=== PATIENT | male | born 1955 | race Caucasian/White ===

== ENCOUNTER 2017-08-21 18:25 | Emergency (ER) | payer BC ==
--- OUTSIDE RECORDS SUMMARY | 2017-08-21 18:27 | XMS REPORT | Clinical Summary ---
:1955 Author Organization [facility] Address [address] [place] [address] Care Team Providers Name Role Phone Donald Ortiz MD Primary Care Provider Allergies No Known Allergies Current Medications Prescription Sig. Disp. Refills Start Date End Date Status meloxicam (MOBIC) 15 mg Take 1 tablet (15 30 tablet 2 09/20/2016 Active tablet mg total) by mouth daily. Hospital, Clinic, or Other Ordered Dose Route Frequency Start Date End Date Status Facility Administered Medication methylPREDNISolone acetate 40 mg IM once 09/20/2016 Active (DEPO-MEDROL) injection 40 mgIndications: Effusion of right knee Active Problems Not on file Encounters Date Type Specialty Care Team Description 03/03/2017 Office Visit Orthopedic Surgery Leonel Leal Effusion of right knee JAKY Shelton (Primary Dx) 10/26/2016 Office Visit Orthopedic Surgery Elie Holloway MD Effusion of right knee (Primary Dx) 09/20/2016 Office Visit Orthopedic Surgery Elie Holloway MD Pain of right hip joint (Primary Dx); Hip strain, right, initial encounter; Effusion of right knee; Right knee pain, unspecified chronicity after 08/20/2016 Social History Tobacco Use Types Packs/Day Years Used Date Never Smoker Smokeless Tobacco: Current User Chew Sex Assigned at Date Recorded Not on file Last Filed Vital Signs Vital Sign Reading Time Taken Blood Pressure - - Pulse - - Temperature - - Respiratory Rate - - Oxygen Saturation - - Inhaled Oxygen Concentration - - Weight 109 kg (240 lb) 09/20/2016 9:35 AM CDT Height 185.4 cm (6' 1") 09/20/2016 9:35 AM CDT Body Mass Index 31.66 09/20/2016 9:35 AM CDT Plan of Treatment Health Maintenance Due Date Last Done Comments COLON CANCER SCREENING 2004 SHINGRIX VACCINE (#1) 2004 ZOSTER VACCINE 2014 INFLUENZA VACCINE 10/12/2017 Procedures Procedure Name Priority Date/Time Associated Comments Diagnosis PA ARTHROCENTESIS Routine 03/03/2017 2:56 Effusion of right Results for this ASPIR&/INJ MAJOR PM IN [employer] knee procedure are in JT/BURSA W/O US the results section. PA ARTHROCENTESIS Routine 09/20/2016 10:39 Effusion of right Results for this ASPIR&/INJ MAJOR AM CDT knee procedure are in JT/BURSA W/O US the results section. after 08/20/2016 Results Large Joint Arthrocentesis (03/03/2017 2:56 PM) JAKY Berry 03/03/20172:56 PM Large Joint Arthrocentesis Consent given by: patient Timeout: Immediately prior to procedure a time out was called to verify the correct patient, procedure, equipment, behavior support specialist and site/side marked as required Supporting Documentation Indications: pain and joint swelling Procedure Details Preparation: Patient was prepped and draped in the usual sterile fashion Ultrasound guided: no Location: knee - R knee Right side: Needle size: 25 G Approach: anterolateral Right knee medications administered: 5 mL lidocaine 10 mg/mL (1 %); 80 mg methylPREDNISolone acetate 40 mg/mL Large Joint Arthrocentesis (09/20/2016 10:39 AM) Narrative Elie Holloway MD 09/20/2016 10:39 AM Large Joint Arthrocentesis Consent given by: patient Timeout: Immediately prior to procedure a time out was called to verify the correct patient, procedure, equipment, behavior support specialist and site/side marked as required Supporting Documentation Indications: pain and joint swelling Procedure Details Preparation: Patient was prepped and draped in the usual sterile fashion Ultrasound guided: no Location: knee - R knee Right side: Needle size: 25 G Approach: anterolateral Right knee medications administered: 5 mL lidocaine 10 mg/mL (1 %); 80 mg methylPREDNISolone acetate 40 mg/mL XR Pelvis 1 Or 2 Vw (09/20/2016 9:58 AM) Specimen Performing Laboratory [facility] [address] [place] [address] Narrative 2 views of the right hip show no significant joint arthrosis or bony lesions. XR Knee 4+ Vw Right (09/20/2016 9:41 AM) Specimen Performing Laboratory [facility] [address] [place] [address] Narrative 4 views (standing AP/PA, lateral and Merchants) of the Right knee(s) reveal no evidence of fracture, dislocation or any other acute or chronic osseous abnormalities. after 08/20/2016 Insurance Payer Benefit Plan / Group Subscriber ID Type Phone Address BCBS BCBS CHOICE PPO/FEDERAL EMPL PPO xxxxxxxxxxxx PPO Home: [phone] [place], [place] [id number]
[2017-08-21] MEDS ORDERED: ACETAMINOPHEN 500 MG TAB ONE (18:59)
--- NOTE | 2017-08-21 19:02 | RAD REPORT ---
EXAM DESCRIPTION: CT - Ct Stroke Brain Wo Cont - 08/21/2017 6:47 pm CLINICAL HISTORY: Confusion and alteration of consciousness COMPARISON: None. TECHNIQUE: Computed axial tomography of the head was obtained. IV contrast was not requested. All CT scans are performed using dose optimization technique as appropriate and may include automated exposure control or mA/KV adjustment according to patient size. FINDINGS: An intracranial bleed is not seen . The ventricles are normal in caliber. No extra-axial fluid collection is noted. Fluid within the sinuses/ mastoids is not seen. IMPRESSION: No acute intracranial abnormality is seen. If patient's symptoms persist MRI of the bra in would be recommended. The exam was discussed with Doctor Berry emergency room 6:50 p.m. August 21, 2017
[2017-08-21 19:15] LABS: Protime INR 1.08
[2017-08-21 19:16] LABS: Absolute Lymphocytes (CBC) 2.2 K/uL (0.7-4.9); Absolute Monocytes 0.7 K/uL (0.1-1.3); Absolute Neutrophil 7.5 K/uL (1.8-8.0); Basophils % 0.4 % (0-1.3); Eosinophils % 1.5 % (0-4.4); Hematocrit 42.9 % (39.6-49.0); Lymphocytes % 21.2 % (15.3-44.8); MCH 32.4 pg (27.0-35.0); MPV 7.9 fL (7.6-11.3); Monocytes % 6.3 % (3.3-12.3); RBC Red Blood Cell Count 4.48 M/uL (4.33-5.43)
--- NOTE | 2017-08-21 19:21 | RAD REPORT ---
EXAM DESCRIPTION: Clarence Single View08/21/2017 7:05 pm CLINICAL HISTORY: fever COMPARISON: 2015 FINDINGS: The lungs appear clear of acute infiltrate. The heart is normal size IMPRESSION: No acute abnormalities displayed
[2017-08-21] MEDS ORDERED: NA CHLORIDE 0.9% 2,000 ML ONE (19:27)
[2017-08-21 19:29] LABS: Potassium 3.9 mEq/L (3.6-5.0)
[2017-08-21 19:37] LABS: Albumin 4.5 g/dL (3.2-5.5); Bilirubin Direct 0.2 mg/dL (0-0.2); C-Reactive Protein 92.8 mg/L (<10.0); Protein, Total 8.2 g/dL (6.0-8.3)
[2017-08-21 19:45] LABS: Urine Bacteria <20 /HPF (NONE SEEN); Urine Culture Reflex Order NOT NEEDED; Urine RBC <5 /HPF (NONE SEEN)
[2017-08-21 20:07] LABS: Urine Blood NEGATIVE (NEG); Urine Glucose NEGATIVE (NEG); Urine Protein TRACE (NEG); Urine Specific Gravity >1.030 (1.005-1.030)
[2017-08-21] MEDS ORDERED: VANCOMYCIN 1 GM/250 ML BAG ONE (20:19)
[2017-08-21] MEDS ORDERED: CEFEPIME 1 GM/100 ML BAG IV ONE (20:19)
[2017-08-21 20:37] LABS: Appearance CLEAR (CLEAR); Body Fluid Source CSF; Color of fluid Colorless (COLORLESS); Fluid Total Volume 7.5 ml
[2017-08-21 20:51] LABS: CSF Glucose 93 mg/dl (40-70)
[2017-08-21] MEDS ORDERED: NA CHLORIDE 0.9% 1,000 ML ONE (20:56)
[2017-08-21 21:16] LABS: Body Fluid WBC 9 /mm^3
[2017-08-21 21:17] LABS: Appearance CLEAR (CLEAR); Body Fluid Source CSF; Body Fluid WBC 3 /mm^3; Color of fluid Colorless (COLORLESS)
[2017-08-21] MEDS ORDERED: LORazepam 2 MG/ML VIAL ONE (22:07)
[2017-08-21] MEDS ORDERED: PROPOFOL 1,000 MG/100 ML VIAL IV ONE (22:11)
--- NOTE | 2017-08-21 22:14 | EDPHYS ---
Physician Documentation [facility] Name: Rad Grimaldo Age: 61 yrs Sex: Male : 1955 Arrival Date: 08/21/2017 Time: 18:29 Bed 3 Private MD: Esthela Ortiz C ED Physician Antelmo Berry HPI: 08/21 19:05 This 61 yrs old Male presents to ER via Ambulatory with complaints of jr8 Dizziness, Confusion. 19:05 Onset: The symptoms/episode began/occurred acutely, today, at 09:00. Context: occurred jr8 at home. Associated signs and symptoms: Pertinent positives: fever. Severity of symptoms: At their worst the symptoms were moderate. Patient's baseline: Neuro: alert and fully oriented, Motor: no deficits, Ambulation: walks without assistance, Speech: normal. The patient has not experienced similar symptoms in the past. The patient has not recently seen a physician. stated that he woke up normal this morning. Stated that he had some low back pain which he has had in the past. Around 0900 AM patient was complaining of being cold. stated that he has been abnormally quite which is not like him. Soon after fell asleep. Upon this afternoon while going to family house noticed he was still confused and not acting right. Came to ED at that time . Historical: - Allergies: 18:57 No Known Allergies; ch - Home Meds: 19:45 Janumet oral oral [Active]; atorvastatin 20 mg oral tab 1 tab once daily [Active]; tl1 glucosamine-chondroitin oral oral [Active]; Aspirin EC Oral [Active]; - PMHx: 18:57 Diabetes - IDDM; ch - PSHx: 18:57 None; ch - Immunization history:: Adult Immunizations up to date. - Social history:: Smoking status: Patient/guardian denies using tobacco. - Ebola Screening: : Patient negative for fever greater than or equal to 101.5 degrees Fahrenheit, and additional compatible Ebola Virus Disease symptoms Patient denies exposure to infectious person Patient denies travel to an Ebola-affected area in the 21 days before illness onset No symptoms or risks identified at this time. - Code Status:: Full code. ROS: 19:03 Eyes: Negative for injury, pain, redness, and discharge, ENT: Negative for injury, jr8 pain, and discharge, Neck: Negative for injury, pain, and swelling, Cardiovascular: Negative for chest pain, palpitations, and edema, Respiratory: Negative for shortness of breath, cough, wheezing, and pleuritic chest pain, Abdomen/GI: Negative for abdominal pain, nausea, vomiting, diarrhea, and constipation, MS/Extremity: Negative for injury and deformity, Skin: Negative for injury, rash, and discoloration. 19:03 Constitutional: Positive for fever. 19:03 Back: Positive for pain at rest, of the right low back. 19:03 Neuro: Positive for altered mental status, dizziness. Exam: 19:03 Head/Face: Normocephalic, atraumatic. Eyes: Pupils equal round and reactive to light, jr8 extra-ocular motions intact. Lids and lashes normal. Conjunctiva and sclera are non-icteric and not injected. Cornea within normal limits. Periorbital areas with no swelling, redness, or edema. ENT: Nares patent. No nasal discharge, no septal abnormalities noted. Tympanic membranes are normal and external auditory canals are clear. Oropharynx with no redness, swelling, or masses, exudates, or evidence of obstruction, uvula midline. Mucous membranes moist. Neck: Trachea midline, no thyromegaly or masses palpated, and no cervical lymphadenopathy. Supple, full range of motion without nuchal rigidity, or vertebral point tenderness. No Meningismus. Cardiovascular: Regular rate and rhythm with a normal S1 and S2. No gallops, murmurs, or rubs. Normal PMI, no JVD. No pulse deficits. Respiratory: Lungs have equal breath sounds bilaterally, clear to auscultation and percussion. No rales, rhonchi or wheezes noted. No increased work of breathing, no retractions or nasal flaring. Abdomen/GI: Soft, non-tender, with normal bowel sounds. No distension or tympany. No guarding or rebound. No evidence of tenderness throughout. Back: No spinal tenderness. No costovertebral tenderness. Full range of motion. Skin: Warm, dry with normal turgor. Normal color with no rashes, no lesions, and no evidence of cellulitis. MS/ Extremity: Pulses equal, no cyanosis. Neurovascular intact. Full, normal range of motion. 19:03 Neuro: Orientation: to person, place, Mentation: able to follow commands, slow to respond, Cranial nerves: CN I not tested, CN II- XII are normal as tested, visual castillo are intact. extraocular movements are intact, Facial palsy and sensory deficits are absent. Speech is clear and appropriate. Tongue strength is normal, Cerebellar function: normal finger to nose testing, heel to pryor testing is normal, Motor: moves all fours, Sensation: no obvious gross deficits, seizure activity, is not displayed by the patient, Abnormal movements: there are no abnormal movements. Vital Signs: 18:32 BP 147 / 88; Pulse 85; Resp 20; Temp 100.1; Pulse Ox 96% ; hb 18:50 Temp 102.3(O); jp3 19:13 Weight 117.93 kg; Height 6 ft. 3 in. (190.50 cm); ch 19:45 BP 140 / 88; Pulse 72; Resp 22; Pulse Ox 96% on R/A; mt 20:09 BP 129 / 86; Pulse 72; Resp 24; Pulse Ox 99% on R/A; Pain 0/10; tl2 20:28 Temp 99.3(O); tl1 20:47 BP 127 / 87; Pulse 68; Resp 17; Pulse Ox 98% on R/A; Pain 0/10; tl1 21:18 BP 131 / 88; Pulse 68; Resp 20; Pulse Ox 97% on R/A; mt 21:37 Temp 99(O); tl1 23:08 BP 143 / 90; Pulse 74; Resp 20; Pulse Ox 95% on R/A; mt 06/11 00:00 BP 140 / 94; Pulse 89; Resp 17; Pulse Ox 96% ; Pain 0/10; tl1 02:11 BP 122 / 79; Pulse 84; Resp 18; Temp 99.8; Pulse Ox 97% on R/A; Pain 0/10; tl1 06 19:13 Body Mass Index 32.50 (117.93 kg, 190.50 cm) NIH Stroke Scale Scores: 08/21 18:48 NIHSS Score: 2 19:03 NIHSS Score: 2 jr Procedures: 20:10 Lumbar Puncture: Patient placed in sitting position. Prepped with Betadine. Draped jr8 using sterile technique. Collected 8 ml's of clear fluid. Sample sent to lab. Puncture site dressed with band aid, Patient tolerated well. MDM: 18:38 Patient medically screened. jr8 22:11 Data reviewed: vital signs, nurses notes, lab test result(s), EKG, radiologic studies, [facility] [place] [facility] scan, plain films, and as a result, I will admit patient. Data interpreted: Pulse oximetry: on room air is 97 %. Interpretation: normal. Counseling: I had a detailed discussion with the patient and/or guardian regarding: the historical points, exam findings, and any diagnostic results supporting the discharge/admit diagnosis, lab results, radiology results, the need to transfer to another facility, for higher level of care, [facility] does not immediately have the required specialist. ED course: Spoke with medicine and neurology at [facility]. Accepted patient. 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 08/21 18:40 Order name: Glucose, Ancillary Testing; Complete Time: 18:42 [facility] 08/21 19:02 Order name: Urine Microscopic Only; Complete Time: 20:10 [facility] [place] 08/21 19:02 Order name: Basic Metabolic Panel; Complete Time: 19:40 [facility] [place] 08/21 19:02 Order name: Blood Culture Adult (2) [facility] [place] 08/21 19:02 Order name: BNP; Complete Time: 19:42 [facility] [place] 08/21 19:02 Order name: C-Reactive Protein; Complete Time: 19:40 [facility] [place] 08/21 19:02 Order name: CBC with Diff; Complete Time: 20:10 [facility] [place] 08/21 19:02 Order name: CPK; Complete Time: 19:40 [facility] [place] 08/21 19:02 Order name: Lactate; Complete Time: 20:10 [facility] [place] 08/21 19:02 Order name: LFT's; Complete Time: 19:40 [facility] [place] 08/21 19:02 Order name: Lipase; Complete Time: 19:40 [facility] [place] 08/21 19:02 Order name: Procalcitonin; Complete Time: 19:41 [facility] [place] 08/21 19:02 Order name: Protime (+inr); Complete Time: 19:40 [facility] [place] 08/21 19:02 Order name: Sed Rate; Complete Time: 20:10 [facility] [place] 08/21 18:43 Order name: CT Stroke Brain w/o Contrast; Complete Time: 19:15 08/21 19:02 Order name: Troponin (emerg Dept Use Only); Complete Time: 19:40 [facility] [place] 08/21 19:02 Order name: Chest Single View XRAY; Complete Time: 19:40 [facility] [place] 08/21 19:29 Order name: Urine Dipstick--Ancillary (enter results); Complete Time: 20:10 [facility] 08/21 20:08 Order name: CSF Bacterial Antigens (tube 1); Complete Time: 21:05 [facility] [place] 08/21 20:08 Order name: Csf Culture [facility] [place] 08/21 20:08 Order name: Fluid Cell Count,Body; Complete Time: 21:34 [facility] [place] 08/21 20:08 Order name: Spinal Fluid Profile; Complete Time: 21:19 [facility] [place] 08/21 22:11 Order name: Head angio [facility] 08/21 22:11 Order name: Neck Angio [facility] 08/21 22:19 Order name: Miscellaneous Test Lab [facility] 08/21 19:02 Order name: Accucheck; Complete Time: 19:14 [facility] [place] 08/21 19:02 Order name: Cardiac monitoring; Complete Time: 19:14 [facility] [place] 08/21 19:02 Order name: EKG - Nurse/Tech; Complete Time: 19:24 [facility] [place] 08/21 19:02 Order name: IV Saline Lock - Large Bore; Complete Time: 19:14 [facility] [place] 08/21 19:02 Order name: Labs collected and sent; Complete Time: 19:14 [facility] [place] 08/21 19:02 Order name: O2 Per Protocol; Complete Time: 19:14 [facility] [place] 08/21 19:02 Order name: O2 Sat Monitoring; Complete Time: 19:14 [facility] [place] 08/21 19:02 Order name: Urine Dipstick-Ancillary (obtain specimen); Complete Time: 19:14 [facility] [place] 08/21 19:07 Order name: Lumbar Puncture Consent; Complete Time: 19:19 [facility] [place] Administered Medications: 19:00 Drug: Tylenol 1000 mg Route: PO; jl7 19:28 Drug: NS 0.9% (30 ml/kg) 30 ml/kg Route: IV; Rate: bolus; Site: right antecubital; tl2 08/22 02:14 Follow up: IV Status: Completed infusion tl1 08/21 20:27 Drug: vancoMYCIN 1 grams Route: IVPB; Infused Over: 2 hrs; Site: right antecubital; tl1 23:21 Follow up: IV Status: Completed infusion tl1 20:27 Drug: Cefepime 1 grams Route: IVPB; Rate: 200 ml/hr; Infused Over: 30 mins; Site: left tl1 hand; 20:58 Follow up: IV Status: Completed infusion tl1 23:22 Drug: Acyclovir 10 mg/kg Route: IVPB; Site: left antecubital; tl1 08/22 00:29 Follow up: IV Status: Completed infusion tl1 02:14 Follow up: IV Status: Completed infusion tl1 01:59 Drug: Motrin 800 mg Route: PO; tl1 02:13 Follow up: Response: Medication administered at discharge. tl1 Point of Care Testing: Blood Glucose: 08/21 18:37 Blood Glucose: 135 mg/dL; hb Ranges: Critical Glucose Levels:Adult <50 mg/dl or >400 mg/dl <40 mg/dl or >180 mg/dl Disposition: 08/22 06:52 Co-signature as Attending Physician, Antelmo Berry MD I agree with the assessment and radha plan of care. Disposition: 08/21/17 22:[address] [facility]. Diagnosis are Aphasia, Meningitis, unspecified. - Reason for transfer: Higher level of care. - Accepting physician is [facility]. - Condition is Stable. - Problem is new. - Symptoms have improved. NIH Stroke Scale - NIH Stroke Score Date: 08/21/2017 Time: 18:48 Total Score = 2 1a. Level of Consciousness (LOC) - 0(Alert) 1b. Level of Consciousness (LOC) (Year \T\ Age) - 1(One) 1c. LOC Commands (Open \T\ Closes Eyes/Sporting Goods Salesperson) - 0(Both) 2. Best Gaze (Lateral Gaze Paresis) - 0(Normal) 3. Visual Field Loss - 0(No visual loss) 4. Facial Palsy - 0(Normal) 5a. Left Arm: Motor (10-second hold) - 0(No drift) 5b. Right Arm: Motor (10-second hold) - 0(No drift) 6a. Left Leg: Motor (5-second hold - always test supine) - 0(No drift) 6b. Right Leg: Motor (5-second hold - always test supine) - 0(No drift) 7. Limb Ataxia (finger/nose \T\ heel/pryor - test with eyes open) - 0(Absent) 8. Sensory Loss (pinprick arms/legs/face) - 0(Normal) 9. Best Language: Aphasia (description/naming/reading) - 1(Mild to moderate aphasia) 10. Dysarthria (speech clarity - read or repeat words) - 0(Normal) 11. Extinction and Inattention (visual/tactile/auditory/spatial/personal) - 0(No abnormality) Initials: hilario NIH Stroke Scale - NIH Stroke Score Date: 08/21/2017 Time: 19:03 Total Score = 2 1a. Level of Consciousness (LOC) - 0(Alert) 1b. Level of Consciousness (LOC) (Year \T\ Age) - 1(One) 1c. LOC Commands (Open \T\ Closes Eyes/Sporting Goods Salesperson) - 0(Both) 2. Best Gaze (Lateral Gaze Paresis) - 0(Normal) 3. Visual Field Loss - 0(No visual loss) 4. Facial Palsy - 0(Normal) 5a. Left Arm: Motor (10-second hold) - 0(No drift) 5b. Right Arm: Motor (10-second hold) - 0(No drift) 6a. Left Leg: Motor (5-second hold - always test supine) - 0(No drift) 6b. Right Leg: Motor (5-second hold - always test supine) - 0(No drift) 7. Limb Ataxia (finger/nose \T\ heel/pryor - test with eyes open) - 0(Absent) 8. Sensory Loss (pinprick arms/legs/face) - 0(Normal) 9. Best Language: Aphasia (description/naming/reading) - 1(Mild to moderate aphasia) 10. Dysarthria (speech clarity - read or repeat words) - 0(Normal) 11. Extinction and Inattention (visual/tactile/auditory/spatial/personal) - 0(No abnormality) Initials: delilah Signatures: Dispatcher [employer] EDMS Na Watson RN RAISSA Sera Robledo RN RN aa1 Antelmo Berry MD MD cha Roszak, Josh, PA PA jr8 Nina Alva RN RN tl1 Kimberly Suggs RN RN tl2 Wyatt Tam RN RN jl7 Corrections: (The following items were deleted from the chart) 02:15 08/21 22:13 08/21/2017 22:13 Transfer ordered [address] Diagnosis is Aphasia; Meningitis, unspecified. Reason for transfer: Higher level of care. Accepting physician is [facility]. Condition is Stable. Problem is new. Symptoms have improved. jr8
--- NOTE | 2017-08-21 22:14 | ER ---
Nurse's Notes [facility] Name: Rad Grimaldo Age: 61 yrs Sex: Male : 1955 Arrival Date: 08/21/2017 Time: 18:29 Bed 3 Private MD: Esthela Ortiz C Diagnosis: Aphasia;Meningitis, unspecified Presentation: 08/21 18:32 Presenting complaint: states: "He has been quiet all day, which is not normal, hb then after his nap this afternoon he has been confused and having a hard time getting his words out." Last known normal 0900 today. Transition of care: patient was not received from another setting of care. Onset of symptoms was August 21, 2017. Risk Assessment: Do you want to hurt yourself or someone else? Patient reports no desire to harm self or others. 18:32 Method Of Arrival: Ambulatory hb 18:32 Acuity: DAVID 2 hb 18:58 Initial Sepsis Screen: Does the patient meet any 2 criteria? Temp <36.0*C (96.8*F)) or ch > 38.3*C (100.4*F). Altered Mental Status. Yes Does the patient have a suspected source of infection? No. Patient's initial sepsis screen is negative. Care prior to arrival: None. Triage Assessment: 18:59 General: Appears in no apparent distress. uncomfortable. ch Historical: - Allergies: 18:57 No Known Allergies; ch - Home Meds: 19:45 Janumet oral oral [Active]; atorvastatin 20 mg oral tab 1 tab once daily [Active]; tl1 glucosamine-chondroitin oral oral [Active]; Aspirin EC Oral [Active]; - PMHx: 18:57 Diabetes - IDDM; ch - PSHx: 18:57 None; ch - Immunization history:: Adult Immunizations up to date. - Social history:: Smoking status: Patient/guardian denies using tobacco. - Ebola Screening: : Patient negative for fever greater than or equal to 101.5 degrees Fahrenheit, and additional compatible Ebola Virus Disease symptoms Patient denies exposure to infectious person Patient denies travel to an Ebola-affected area in the 21 days before illness onset No symptoms or risks identified at this time. - Code Status:: Full code. Screenin:48 Abuse screen: Denies threats or abuse. Denies injuries from another. Nutritional ch screening: No deficits noted. Tuberculosis screening: No symptoms or risk factors identified. Fall Risk None identified. 19:00 Patient has been NPO before screening. The patient is alert, able to follow commands. ch The patient does not exhibit slurred or garbled speech The patient is not exhibiting difficulty speaking. The patient does not exhibit difficulty understanding words. The patient is able to swallow own secretions with no drooling or need for suction. Patient tolerated one teaspoon of water. No drooling, immediate coughing, gurgling, or clearing of the throat was noted. The patient tolerated 90mL of water. No drooling, immediate coughing, gurgling, or clearing of the throat was noted. The patient passed the bedside swallow screening. Oral medications may be given as ordered. Contact Physician for further diet orders. Provider notified of bedside swallow screening results: Corby STARKEY. Assessment: 18:38 Reassessment: Code Stroke called to ER, pt transported to CT via wheelchair with caity Monzon RN. 18:47 Reassessment: EKG performed. 18:48 Reassessment: pt returned to room from CT, Corby at bedside to perform stroke scale. ch 18:50 General: Appears in no apparent distress. comfortable, Behavior is calm, cooperative, ch appropriate for age. Pain: Denies pain. Neuro: Level of Consciousness is awake, alert, obeys commands, Oriented to person, place, Information Systems Security Manager are equal bilaterally Moves all extremities. Full function Gait is steady, Speech is normal, Facial symmetry appears normal, Facial symmetry: tongue is midline, Pupils are PERRLA. Cardiovascular: Heart tones S1 S2 present. Respiratory: Airway is patent Respiratory effort is even, unlabored, Breath sounds are clear bilaterally. GI: No signs and/or symptoms were reported involving the gastrointestinal system. Derm: Skin is intact, Skin is dry, Skin is normal, Skin temperature is hot. 18:50 Reassessment: CT report given to Jamal, negative. 18:51 Reassessment: portable chest x ray done. 19:00 Reassessment: 1900- Labs given to mirta and sent to Lab. ch 19:01 Reassessment: Patient appears in no apparent distress at this time. 19:20 Reassessment: report given to nina. 20:00 General: Appears in no apparent distress. Behavior is calm, cooperative, appropriate tl1 for age. Pain: Denies pain. Neuro: Level of Consciousness is awake, alert, obeys commands, Oriented to person, place, Information Systems Security Manager are equal bilaterally Moves all extremities. Full function Gait is steady, Speech with expressive aphasia noted, Facial symmetry appears normal, Facial symmetry: tongue is midline, Pupils are PERRLA. Cardiovascular: Denies chest pain, Rhythm is regular. Respiratory: Airway is patent Respiratory effort is even, unlabored, Breath sounds are clear bilaterally. GI: No signs and/or symptoms were reported involving the gastrointestinal system. Abdomen is non-distended, Bowel sounds present X 4 quads. : No signs and/or symptoms were reported regarding the genitourinary system. EENT: No signs and/or symptoms were reported regarding the EENT system. Derm: Skin is intact, Skin is dry, Skin is normal, Skin temperature is hot. 08/22 02:12 Reassessment: Patient and/or family updated on plan of care and expected duration. Pain tl1 level reassessed. Patient is alert, oriented x 3, equal unlabored respirations, skin warm/dry/pink. report given to Jarrett HAJI at [facility] Patient denies pain at this time. Patient states symptoms have not improved. Vital Signs: 08/21 18:32 BP 147 / 88; Pulse 85; Resp 20; Temp 100.1; Pulse Ox 96% ; hb 18:50 Temp 102.3(O); jp3 19:13 Weight 117.93 kg; Height 6 ft. 3 in. (190.50 cm); ch 19:45 BP 140 / 88; Pulse 72; Resp 22; Pulse Ox 96% on R/A; mt 20:09 BP 129 / 86; Pulse 72; Resp 24; Pulse Ox 99% on R/A; Pain 0/10; tl2 20:28 Temp 99.3(O); tl1 20:47 BP 127 / 87; Pulse 68; Resp 17; Pulse Ox 98% on R/A; Pain 0/10; tl1 21:18 BP 131 / 88; Pulse 68; Resp 20; Pulse Ox 97% on R/A; mt 21:37 Temp 99(O); tl1 23:08 BP 143 / 90; Pulse 74; Resp 20; Pulse Ox 95% on R/A; mt 06/11 00:00 BP 140 / 94; Pulse 89; Resp 17; Pulse Ox 96% ; Pain 0/10; tl1 02:11 BP 122 / 79; Pulse 84; Resp 18; Temp 99.8; Pulse Ox 97% on R/A; Pain 0/10; tl1 0610 19:13 Body Mass Index 32.50 (117.93 kg, 190.50 cm) NIH Stroke Scale Scores: 08/21 18:48 NIHSS Score: 2 19:03 NIHSS Score: 2 [facility] ED Course: 18:29 Patient arrived in ED. mr 18:29 Esthela Ortiz MD is Private Physician. mr 18:34 Triage completed. hb 18:36 Na Watson, RAISSA is Primary Nurse. 18:38 Corby Nichols PA is PHCP. jr8 18:38 Antelmo Berry MD is Attending Physician. jr8 18:47 CT Stroke Brain w/o Contrast In Process Unspecified. EDMS 18:55 No apparent distress. Resting quietly. 18:55 Inserted saline lock: 20 gauge in right antecubital area, using aseptic technique. Blood collected. 18:57 Arm band placed on left wrist. Patient placed in an exam room, on a stretcher, on nursing assistants teacher, on pulse oximetry. 19:00 Patient has correct armband on for positive identification. Placed in gown. Bed in low ch position. Call light in reach. Side rails up X 1. Adult w/ patient. handle lathe operator on. Pulse ox on. NIBP on. PO fluids given. 19:05 X-ray completed. Portable x-ray completed in exam room. Patient tolerated procedure la2 well. 19:05 Chest Single View XRAY In Process Unspecified. EDMS 19:13 Report given to Nina Tirado 19:13 Initial lab(s) drawn, sent to lab. 19:19 Inserted saline lock: 22 gauge in left hand, using aseptic technique. Blood collected. tl2 placed by mirta Steve. 19:20 First set of blood cultures drawn by sd. sc 19:32 Nina Alva, RN is Primary Nurse. tl1 19:32 Straight cath inserted, using sterile technique, 14 Fr. Specimen obtained. Returned tl1 clear yellow urine. Patient tolerated well. 20:08 Assist provider with lumbar puncture: Set up LP tray. Performed by Corby STARKEY CSF tl2 is clear. Sample sent to lab. Puncture site dressed with band aid, Procedure was successful. Patient tolerated well. 22:43 CT completed. Patient moved to CT via wheelchair. Patient moved to CT via stretcher. cw1 Patient moved back from CT. 22:45 Head angio In Process Unspecified. EDMS 22:45 Neck Angio In Process Unspecified. EDMS 08/22 02:12 Patient transferred, IV remains in place. tl1 Administered Medications: 08/21 19:00 Drug: Tylenol 1000 mg Route: PO; jl7 19:28 Drug: NS 0.9% (30 ml/kg) 30 ml/kg Route: IV; Rate: bolus; Site: right antecubital; tl2 08/22 02:14 Follow up: IV Status: Completed infusion tl1 08/21 20:27 Drug: vancoMYCIN 1 grams Route: IVPB; Infused Over: 2 hrs; Site: right antecubital; tl1 23:21 Follow up: IV Status: Completed infusion tl1 20:27 Drug: Cefepime 1 grams Route: IVPB; Rate: 200 ml/hr; Infused Over: 30 mins; Site: left tl1 hand; 20:58 Follow up: IV Status: Completed infusion tl1 23:22 Drug: Acyclovir 10 mg/kg Route: IVPB; Site: left antecubital; tl1 08/22 00:29 Follow up: IV Status: Completed infusion tl1 02:14 Follow up: IV Status: Completed infusion tl1 01:59 Drug: Motrin 800 mg Route: PO; tl1 02:13 Follow up: Response: Medication administered at discharge. tl1 Point of Care Testing: Blood Glucose: 08/21 18:37 Blood Glucose: 135 mg/dL; hb Ranges: Outcome: 22:13 ER care complete, transfer ordered by MD. mazariegos 08/22 01:22 Transferred by ground EMS to [facility], Transfer form completed. tl1 X-rays sent w/ patient. Condition: stable Instructed on the need for transfer. 02:15 Patient left the ED. tl1 NIH Stroke Scale - NIH Stroke Score Date: 08/21/2017 Time: 18:48 Total Score = 2 1a. Level of Consciousness (LOC) - 0(Alert) 1b. Level of Consciousness (LOC) (Year \\T\\ Age) - 1(One) 1c. LOC Commands (Open \\T\\ Closes Eyes/Yardmaster) - 0(Both) 2. Best Gaze (Lateral Gaze Paresis) - 0(Normal) 3. Visual Field Loss - 0(No visual loss) 4. Facial Palsy - 0(Normal) 5a. Left Arm: Motor (10-second hold) - 0(No drift) 5b. Right Arm: Motor (10-second hold) - 0(No drift) 6a. Left Leg: Motor (5-second hold - always test supine) - 0(No drift) 6b. Right Leg: Motor (5-second hold - always test supine) - 0(No drift) 7. Limb Ataxia (finger/nose \\T\\ heel/pryor - test with eyes open) - 0(Absent) 8. Sensory Loss (pinprick arms/legs/face) - 0(Normal) 9. Best Language: Aphasia (description/naming/reading) - 1(Mild to moderate aphasia) 10. Dysarthria (speech clarity - read or repeat words) - 0(Normal) 11. Extinction and Inattention (visual/tactile/auditory/spatial/personal) - 0(No abnormality) Initials: NIH Stroke Scale - NIH Stroke Score Date: 08/21/2017 Time: 19:03 Total Score = 2 1a. Level of Consciousness (LOC) - 0(Alert) 1b. Level of Consciousness (LOC) (Year \\T\\ Age) - 1(One) 1c. LOC Commands (Open \\T\\ Closes Eyes/Yardmaster) - 0(Both) 2. Best Gaze (Lateral Gaze Paresis) - 0(Normal) 3. Visual Field Loss - 0(No visual loss) 4. Facial Palsy - 0(Normal) 5a. Left Arm: Motor (10-second hold) - 0(No drift) 5b. Right Arm: Motor (10-second hold) - 0(No drift) 6a. Left Leg: Motor (5-second hold - always test supine) - 0(No drift) 6b. Right Leg: Motor (5-second hold - always test supine) - 0(No drift) 7. Limb Ataxia (finger/nose \\T\\ heel/pryor - test with eyes open) - 0(Absent) 8. Sensory Loss (pinprick arms/legs/face) - 0(Normal) 9. Best Language: Aphasia (description/naming/reading) - 1(Mild to moderate aphasia) 10. Dysarthria (speech clarity - read or repeat words) - 0(Normal) 11. Extinction and Inattention (visual/tactile/auditory/spatial/personal) - 0(No abnormality) Initials: delilah Signatures: Dispatcher [employer] EDMS Na Watson, RN RN Shauna Wilder Irene, RN RN Maite Goetz 1 Corby Nichols PA PA jr8 Nina Alva RN RN tl1 Sania Padilla RN RN Kimberly Suggs RN RN tl2 Wyatt Tam RN RN [email or web address] Evi Zuñiga mt, Leslie la2 Pisarski, Jacob jp3 Corrections: (The following items were deleted from the chart) 08/21 18:35 18:32 Presenting complaint: states: "He has been quiet all day, which is hb not normal, then after his nap this afternoon he has been confused and having a hard time getting his words out." hb
[2017-08-21] MEDS ORDERED: ACYCLOVIR NA 500 MG/VIAL IVPB ONE (22:24)
[2017-08-21] MEDS ORDERED: D5W 250 ML IV ONE (23:09)
[2017-08-22] MEDS ORDERED: IBUPROFEN 400 MG TAB ONE (01:58)
--- NOTE | 2017-08-22 07:33 | EKG ---
Test Date: 2017-08-21 Test Time: 18:47:41 Candle Wrapping Machine Operator: KAE MEASUREMENT RESULTS: Intervals: Rate: 89 NV: 182 QRSD: 94 QT: 376 QTc: 457 [place]: P: 49 NV: 182 QRS: -34 T: 24 INTERPRETIVE STATEMENTS: Normal sinus rhythm Left axis deviation Incomplete right bundle branch block Abnormal ECG Compared to ECG 11/28/2009 08:40:53 Left-axis deviation now present Incomplete right bundle-branch block now present Sinus bradycardia no longer present Electronically Signed On 08-22-17 07:32:50 CDT by Tylor Steel
--- NOTE | 2017-08-22 09:45 | RAD REPORT ---
EXAM DESCRIPTION: CTHead angio08/22/2017 4:28 am CLINICAL HISTORY: TIA COMPARISON: None TECHNIQUE: CT angiogram of the head was obtained. 50 cc Isovue 370 was intravenously. Coronal and sa gittal reconstruction was performed . A preliminary report was generated by [employer] and re viewed prior to this dictation All CT scans are performed using dose optimization technique as appropriate and may include automated exposure control or mA/KV adjustment according to patient size. FINDINGS: The basilar, internal carotid, anterior cerebral, middle cerebral and posterior cerebral a rteries are patent. An aneurysm is not seen. Mild atherosclerotic disease is present. A significant stenosis is not noted. IMPRESSION: No significant abnormalities displayed
--- NOTE | 2017-08-22 09:48 | RAD REPORT ---
EXAM DESCRIPTION: HECTORCocohannah Angio08/22/2017 4:28 am CLINICAL HISTORY: TIA. COMPARISON: August 21, [address] TECHNIQUE: 50 cc Isovue [address] angiogram neck was performed. Coronal and sagittal reconstruction was done. All CT scans are performed using dose optimization technique as appropriate and may include automated exposure control or mA/KV adjustment according to patient size. A preliminary report was reviewe by [employer] and reviewed prior to this dictation. FINDINGS: The internal carotid arteries are tortuous bilaterally. Mild atherosclerotic disease is present. A high-grade stenosis is not visualized. The common carotid, internal carotid and external carotid arteries are patent. The left vertebral artery is a little bit more dominant than the right. Significant stenosis is not s een. An aneurysm is not displayed. IMPRESSION: 1. The internal carotid arteries are tortuous. 2. Mild atherosclerotic disease is seen. 3. An occlusion/high-grade stenosis is not visualized.
== END 2017-08-22 02:15 | disposition short-term general hospital (02) ==
LOC: ER 18:25
PROC: 009U3ZX Drainage of Spinal Canal, Percutaneous Approach, Diagnostic (ICD-10-PCS; principal; 2017-08-22)
DX: G03.9 Meningitis, unspecified (principal); R47.01 Aphasia; E11.9 Type 2 diabetes mellitus without complications; Z79.82 Long term (current) use of aspirin
CPT/HCPCS: 36415; 51702; 62270; 70450; 70496; 70498; 71045; 80048; 80076; 81003; 81015; 82550; 82945; 82962; 83605; 83690; 83880; 84145; 84157; 84484; 85025; 85610; 85652; 86140; 86403; 87040; 87070; 89050; 93005; 99285; J0133; J0692; J3370; J7030; J7060; Q9967